=== PATIENT | male | born 1950 | race Caucasian/White ===

== ENCOUNTER → 2017-02-17 | Outpatient (CLI) | payer OTHER | LOC: CIMAGING 13:06 | PROVIDERS: ATTEND Family Medicine | DX: J45.909 Unspecified asthma, uncomplicated (principal); G47.33 Obstructive sleep apnea (adult) (pediatric); I10 Essential (primary) hypertension; M25.561 Pain in right knee | CPT/HCPCS: 71020-PO ==

== ENCOUNTER 2017-03-03 09:14 | Day surgery (SDC) | payer OTHER ==
--- NOTE | 2017-03-02 15:44 | GHP ---
[f rep st] PREOP HISTORY AND PHYSICAL DATE OF ADMISSION: 03/03/2017 HISTORY: The patient is a 66-year-old male, who presents with bilateral knee issues, including a pre vious diagnosis of arthritis. It is his right knee that bothers him the most and has done so fairly chronically. He has pain, swelling largely medial compartment symptoms. His symptoms prompted an MR I of the right knee, which shows a complex tear posterior horn body of the medial meniscus, probably some undersurface tear of the anterior horn, grade 2 cartilage disease of the medial compartment. Th ere is a subchondral fracture with bone marrow edema, and adjacent cystic change or potentially even of the central weightbearing portion of the medial femoral condyle. 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 There . A right knee arthroscopy is planned to address his cartilage issues. PAST MEDICAL HISTORY: Allergy to sulfa. His medical concerns include arthritis, asthma, depression, elevated cholesterol, hypertension, as well as sleep apnea, he is overweight. SOCIAL HISTORY: He is a former smoker. Retired teacher. MEDICATIONS: Lovastatin 20 mg p.o. daily, Fenofibrate 150 mg tablets daily, Zafirlukast 1 hour after meals, lisinopril 20 mg, hydrochlorothiazide 12.5 mg 2 p.o. daily, diclofenac 50 mg, zolp idem 5 mg tablet q.h.s. p.r.n., amitriptyline 25 mg p.o. daily, albuterol sulfate, Pro HFA, Advair Di skus, metronidazole topical gel. REVIEW OF SYSTEMS: Positive from a pulmonary standpoint for asthma, as well as for sleep apnea. Fro m the cardiopulmonary standpoint elevated cholesterol and hypertension. PHYSICAL EXAM: GENERAL: The patient is a well-developed, well-nourished, overweight male, in no velvet arent distress. HEAD AND NECK: Normocephalic, atraumatic. CHEST: Clear. CARDIOVASCULAR: Regular rate and rhythm. ABDOMEN: Soft. NEUROLOGICAL: He is alert and oriented x3. EXTREMITIES: Examin ation of the right knee shows a slight flexion contracture and about 120 degrees of bend. He has pos itive medial joint line tenderness, and positive medial Opal's testing. The knee is ligamentousl y stable. His knee tends towards varus alignment. IMPRESSION: Right knee has a combination of a complex medial meniscal tear, as well as some arthriti c concerns largely patellofemoral and medial femoral osteochondral injury. PLAN: Right knee arthroscopy. Articular meniscal cartilage work as needed. Benefits and risks of dmitriy harry have been reviewed. He has signed a consent form, which is to proceed. I have emphasize real istic expectations, as well as a portion of his discomfort involved his arthritis. He also has the m edial femoral condyle lesion that I think is possibly a reactive to mechanical problems in his menisc us. He has signed a consent form, wishes to proceed. /[id number]/MODL
[2017-03-03] MEDS ORDERED: ceFAZolin 3 GM in D5W 100 ML IV ONE (09:36)
[2017-03-03] MEDS ORDERED: LR 1,000 ML IV SCH (09:36)
[2017-03-03] MEDS ORDERED: LIDOCAINE 1% 2 ML INJ ID PRN (09:37)
[2017-03-03] MEDS ORDERED: LR 1,000 ML IV ONE (09:37)
[2017-03-03] MEDS ORDERED: MIDAZOLAM 2 MG/2 ML VIAL IVP ONE (10:04)
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
[2017-03-03] MEDS ORDERED: fentaNYL 100 MCG/2 ML INJ ONE (10:09)
[2017-03-03] MEDS ORDERED: PROPOFOL/EMULSION 500 MG/50 ML BOTTLE IV ONE (10:11)
[2017-03-03] MEDS ORDERED: DEPO METHYLPREDNISOLONE 40 MG/ML SDV ONE (10:12)
[2017-03-03] MEDS ORDERED: BUPIVACAINE 0.5% 30 ML SDV ONE (10:12)
[2017-03-03 10:24] VITALS: PULSE 79
[2017-03-03] MEDS ORDERED: DEXAMETHASONE 4 MG/ML VIAL ONE (10:38)
[2017-03-03] MEDS ORDERED: ONDANSETRON 4 MG/2 ML VIAL ONE (10:38)
[2017-03-03] MEDS ORDERED: LABETALOL HCL 50 MG/10 ML SYR IVP PRN (10:51)
[2017-03-03] MEDS ORDERED: OXYCODONE/APAP 5/325 TAB PO PRN (10:51)
[2017-03-03] MEDS ORDERED: ACETAMINOPHEN 500 MG TAB PO PRN (10:51)
[2017-03-03] MEDS ORDERED: NALOXONE HCL 0.4 MG/ML INJ IVP PRN ×2 (10:51→10:58)
[2017-03-03] MEDS ORDERED: HYDROCODONE/APAP 5/325 TAB PO PRN (10:51)
[2017-03-03] MEDS ORDERED: fentaNYL 100 MCG/2 ML INJ IVP PRN (10:51)
[2017-03-03] MEDS ORDERED: ALBUTEROL 3 ML DEYVIAL IH PRN (10:51)
[2017-03-03] MEDS ORDERED: HYDROmorphONE/DILAUDID 1 MG/ML INJ IVP PRN (10:51)
[2017-03-03] MEDS ORDERED: ONDANSETRON 4 MG/2 ML VIAL IVP PRN ×2 (10:51→11:21)
[2017-03-03] MEDS ORDERED: DEXAMETHASONE 4 MG/ML VIAL IVP PRN (10:51)
[2017-03-03] MEDS ORDERED: LR 500 ML IV PRN (10:51)
[2017-03-03] MEDS ORDERED: ONDANSETRON DISINTEGRATING 4 MG TAB PO PRN (11:21)
[2017-03-03] MEDS ORDERED: ACETAMINOPHEN 500 MG TAB ONE (11:57)
[2017-03-03 12:00] VITALS: TEMP 97.3
--- NOTE | 2017-03-03 12:33 | GOP ---
[f rep st] OPERATIVE REPORT DATE OF OPERATION: SURGEON: Manny Christina MD ANESTHESIOLOGIST: Heriberto Trujillo MD PREOPERATIVE DIAGNOSIS: Right knee medial meniscal tear. POSTOPERATIVE DIAGNOSIS: Right knee medial meniscal tear. PROCEDURE PERFORMED: Right knee arthroscopy, partial medial meniscectomy. FINDINGS: At surgery and exam under anesthesia demonstrates a stable knee, small effusion. On arthr oscopy, there was some diffuse grade 1-2 chondromalacia of the patellofemoral joint. In the medial c ompartment, there was a complex degenerative meniscal tear involving unstable flaps. There was some grade 1-2 chondromalacia on the medial femoral condyle, grade 1-2 chondromalacia on the medial platea u. The lateral compartment is the best preserved, a stable lateral meniscus with intact articular sousa rfaces. Cruciates are intact in the notch. SPECIMENS: No specimens. ESTIMATED BLOOD LOSS: Minimal. INDICATIONS: The patient is a 66-year-old male, who presents with right knee swelling, pain and mech anical symptoms. He has medial joint line tenderness, positive Opal's test. MRI shows a medial meniscal tear where he is symptomatic. DESCRIPTION OF PROCEDURE: The patient was taken to the operating room, placed supine on the operatin g table, placed under general anesthetic with laryngeal mask ventilation. He received 2 g of IV Ance f. I used a leg choi on the right thigh. The right knee was prepped and draped with chlorhexidine for arthroscopy in the usual fashion. Standard arthroscopy portals were used and the entire knee wa s inspected with the above-noted findings. I addressed the medial meniscus with a basket punch and a rotary shaver, ellipsing the meniscus back to a stable rim. This included eliminating the unstable flaps. The remaining meniscus was smooth, tapered and balanced. I washed out the knee. I placed 20 cc of 0.5% plain Marcaine in the joint with 1 cc of Depo-Medrol 40 mg/cc. Portals were closed with 4-0 Prolene. The wounds were dressed with Betadine-soaked Adaptic, 4 x 4, sterile Webril, and a long -leg Jonathan stocking. COMPLICATION: No complications. DRAINS: No drains. COUNTS: All counts correct. The patient was taken in stable condition to recovery. /[id number]/MODL
[2017-03-03 14:32] VITALS: BP 127/68; RESP 14
[2017-03-03 14:50] VITALS: O2SAT 93
--- NOTE | 2017-03-03 18:21 | POSTANESTH ---
Post Anesthetic Evaluation Cardiovascular Status: Normal, Stable Respiratory Status: Normal, Stable Level of Consciousness/Mental Status: Can Participate in Eval Pain Control: Adequate, Prn Tx Ordered Nausea/Vomiting Control: Adequate, Prn Tx Ordered Complications Possibly Related to Anesthesia: None Noted
== END 2017-03-03 14:51 | disposition home or self-care (01) ==
LOC: FSGY 09:14
PROVIDERS: ATTEND Orthopaedic Surgery
PROC: 0MQN4ZZ Repair Right Knee Bursa and Ligament, Percutaneous Endoscopic Approach (ICD-10-PCS; principal; 2017-03-03 10:45)
DX: S83.231D Complex tear of medial meniscus, current injury, right knee, subsequent encounter (principal); M22.41 Chondromalacia patellae, right knee; M25.461 Effusion, right knee; M17.0 Bilateral primary osteoarthritis of knee; J45.909 Unspecified asthma, uncomplicated; G47.33 Obstructive sleep apnea (adult) (pediatric); I10 Essential (primary) hypertension; Z87.891 Personal history of nicotine dependence
CPT/HCPCS: J0171; J0690; J1030; J1100; J2250; J2405; J2704; J3010